=== PATIENT | female | born 1965 | race Caucasian/White ===

== ENCOUNTER 2017-04-24 12:24 | Emergency (ER) | payer MEDICAID ==
[~2017-04-24] VITALS: Ht 160 cm; Wt 104.1 kg
[~2017-04-24 12:24] MED LIST: IBUP-1572 PO; NEOM14.216 TP
[2017-04-24] MEDS ORDERED: normal saline 1000ML IV soln IV ONE (13:45)
[2017-04-24] MEDS ORDERED: morphine 4 MG/ML inj SYRINge IV ONE (13:45)
[2017-04-24 15:27] LABS: BASOPHILS # (AUTO) 0.1 X10'3 (0-0.2); BASOPHILS % (AUTO) 0.3 % (0-1); EOSINOPHILS # (AUTO) 0.2 X10'3 (0-0.9); EOSINOPHILS % (AUTO) 0.8 % (0-6); HEMATOCRIT 31.8 % (35.0-45.0); HEMOGLOBIN 10.9 g/dl (12.0-16.0); LYMPHOCYTES # (AUTO) 1.4 X10'3 (1.1-4.8); LYMPHOCYTES % (AUTO) 7.1 % (21-51); MEAN CORPUSCULAR HEMOGLOBIN 26.4 PG (27.0-31.0); MEAN CORPUSCULAR HGB CONC 34.3 % (33.0-36.5); MEAN CORPUSCULAR VOLUME 77.1 FL (78-98); MEAN PLATELET VOLUME 7.5 FL (7.4-10.4); MONOCYTES # (AUTO) 0.3 X10'3 (0-0.9); MONOCYTES % (AUTO) 1.6 % (2-12); NEUTROPHILS % (AUTO) 90.2 % (42-75); PLATELET COUNT 366 X10'3 (140-440); RED BLOOD COUNT 4.13 X10'6 (4.20-5.60); RED CELL DISTRIBUTION WIDTH 15.1 % (11.5-14.5)
[2017-04-24] MEDS ORDERED: vancomycin/NS 1 GM ADD-VANTAGE 250 ML IV ONE (15:45)
[2017-04-24] MEDS ORDERED: iohexol 300mg/ml 100ml inj. ONE (15:48)
[2017-04-24 15:51] LABS: ALANINE AMINOTRANSFERASE 25 U/L (12-78); ALBUMIN 2.5 G/DL (3.4-5.0); ALBUMIN/GLOBULIN RATIO 0.5 (1.1-1.5); ALKALINE PHOSPHATASE 99 IU/L (46-116); ANION GAP 9 (8-16); ASPARTATE AMINO TRANSFERASE 16 U/L (10-37); BILIRUBIN,TOTAL 0.4 MG/DL (0.1-1.0); BLOOD UREA NITROGEN 10 MG/DL (7-18); BUN/CREATININE RATIO 14.1 (6.6-38.0); CALCIUM 8.4 MG/DL (8.5-10.1); CHLORIDE 105 MMOL/L (99-107); CREATININE 0.71 MG/DL (0.40-0.90); GLUCOSE 102 MG/DL (70-104); POTASSIUM 3.2 MMOL/L (3.5-5.1); SODIUM 142 MMOL/L (135-145); TOTAL CARBON DIOXIDE 27.9 MMOL/L (24-32); TOTAL PROTEIN 7.3 G/DL (6.4-8.2); eGFR 87 ML/MIN
[2017-04-24] MEDS ORDERED: LIDOcaine 1.5% w/epinephrine 1:200,000 5ml ampul IJ ONE (17:00)
[2017-04-24] MEDS ORDERED: TETanus/Pertussis (Acell)/Diphther VAC/PF (Tdap-Adult) 0.5ml syringe IM ONE (17:00)
[2017-04-24] MEDS ORDERED: HYDR-569 PO (17:56)
[2017-04-24] MEDS ORDERED: DOXY100C43 PO (17:56)
[2017-04-24] MEDS ORDERED: ONDA4TAB9 PO (17:56)
[2017-04-24] MEDS ORDERED: CEPH-571 PO (17:56)
[2017-04-24 19:23] VITALS: BP 153/92
== END 2017-04-24 19:24 | disposition home or self-care (01) ==
LOC: ER 12:24
DX: L02.416 Cutaneous abscess of left lower limb (principal); M19.90 Unspecified osteoarthritis, unspecified site; Z90.710 Acquired absence of both cervix and uterus; Z98.890 Other specified postprocedural states; Z88.2 Allergy status to sulfonamides; Z88.5 Allergy status to narcotic agent; Z79.899 Other long term (current) drug therapy
CPT/HCPCS: 10060; 36415; 73701; 80053; 83605; 85025; 87040; 90471; 90715; 96361; 96365; 96375; 99285; A6266; A6449; J2270; J3370; J3490; J7030; Q9967

== ENCOUNTER 2017-04-27 16:17 | Emergency (ER) | payer MEDICAID ==
[~2017-04-27] VITALS: Ht 162.6 cm; Wt 109.1 kg
[~2017-04-27 16:17] MED LIST changes: +CEPH-571 PO; +DOXY100C43 PO; +HYDR-569 PO; +ONDA4TAB9 PO
[2017-04-27 16:29] VITALS: BP 147/87
== END 2017-04-27 17:56 | disposition home or self-care (01) ==
LOC: ER 16:18
DX: L02.415 Cutaneous abscess of right lower limb (principal); M19.90 Unspecified osteoarthritis, unspecified site; Z90.710 Acquired absence of both cervix and uterus; Z88.2 Allergy status to sulfonamides; Z88.5 Allergy status to narcotic agent; Z79.899 Other long term (current) drug therapy
CPT/HCPCS: 99283; A6266; A6449

== ENCOUNTER 2019-09-13 13:35 | Emergency (ER) | payer MEDICAID ==
[~2019-09-13] VITALS: Ht 160 cm; Wt 138.0 kg
[~2019-09-13 13:35] MED LIST changes: -DOXY100C43 PO; +HYDR-4383 PO; -HYDR-569 PO; +LIDOcaine 1% W/epiNEPHrine 1:200,000 10ml vial ONE; -ONDA4TAB9 PO
[2019-09-13 13:59] VITALS: BP 178/82
[2019-09-13] MEDS ORDERED: TETanus/Pertussis (Acell)/Diphther VAC/PF (Tdap-Adult) 0.5ml syringe IMVAC ONE (15:40)
[2019-09-13] MEDS ORDERED: LIDOcaine 1% W/epiNEPHrine 1:200,000 10ml vial IJ ONE (15:40)
== END 2019-09-13 16:40 | disposition home or self-care (01) ==
LOC: ER 13:35
DX: S61.210A Laceration without foreign body of right index finger without damage to nail, initial encounter (principal); S61.411A Laceration without foreign body of right hand, initial encounter; M19.90 Unspecified osteoarthritis, unspecified site; F31.9 Bipolar disorder, unspecified; Z90.49 Acquired absence of other specified parts of digestive tract; Z90.710 Acquired absence of both cervix and uterus; Z98.890 Other specified postprocedural states; Z87.891 Personal history of nicotine dependence; Z88.2 Allergy status to sulfonamides; Z88.5 Allergy status to narcotic agent; Z79.2 Long term (current) use of antibiotics; Z79.899 Other long term (current) drug therapy; W25.XXXA Contact with sharp glass, initial encounter; Y93.G1 Activity, food preparation and clean up; Y92.89 Other specified places as the place of occurrence of the external cause; Y99.8 Other external cause status
CPT/HCPCS: 12001; 90471; 90715; 99283

== ENCOUNTER 2024-10-04 13:12 | Emergency (ER) | payer MEDICAID ==
[~2024-10-04] VITALS: Ht 154.9 cm; Wt 119.1 kg
[~2024-10-04 13:12] MED LIST changes: -LIDOcaine 1% W/epiNEPHrine 1:200,000 10ml vial ONE
[2024-10-04 13:32] VITALS: BP 150/72; PULSE 84; TEMP 97; O2SAT 98
--- NOTE | 2024-10-04 14:11 | Physician Documentation ---
History of Present Illness ~ Chief Complaint: Rash Stated Complaint: RASH, BODY PAIN Time Seen by MD: 15:09 OK to notify your PCP?: Yes Primary Medical Doctor: vincent] Source: patient Mode of Arrival: POV Exam Limitations: no limitations HPI 59-year-old female presents for rash on her right and left inner wrists which is painful and itchy and it appeared yesterday. She is also experiencing chronic low back pain that is radiating down bilateral legs. She denies any saddle anesthesia or loss of bowel or bladder. History of fibromyalgia. Tried Tylenol with no relief. Medication Reconciliation Allergies: Coded Allergies: Sulfa (Sulfonamide Antibiotics) (Verified Allergy, Unknown, 10/04/24) codeine (Verified Allergy, Unknown, 10/04/24) Scheduled Cephalexin (Keflex), 1 CAP PO Q6H Doxycycline Monohydrate (Doxycycline Monohydrate), 1 CAP PO Q12H Hydrocodone/Acetaminophen (Moro 5-325 Tablet), 1 TAB PO TID PRN Neomy Sulf/Bacitrac Zn/Poly (Neosporin Antibiotic Ointment), 14.2 GM TP BID Scheduled PRN Ibuprofen (Ibuprofen), 400-800 MG PO Q8H PRN Past Medical History Past Medical History: Pneumonia, Arthritis, Fibromyalgia, Bipolar, Depression Past Surgical History: appendectomy, , hysterectomy, orthopedic surgeries, tonsillectomy, other Alcohol Use: None Drug Use: none Lives with: Family Lives In: Home Occupation: employed Review of Systems All Other Systems at this time: Reviewed and Negative Physical Exam Vital Signs: RN Vital Signs have been reviewed: Yes, Temperature: 97.0, Source: Temporal, Heart Rate: 84, Respiratory Rate: 16, BP: 150/72, Pulse Oximetry: 98, Weight: 119.100 Oxygen Flow Rate: 0 Pulse Oximetry Reflects: adequate oxygenation Physical Exam General: Alert, no apparent distress. HEENT: PERRL, EOMI, no injection, moist mucous membranes. Neck: Full range of motion. Respiratory: Lungs clear, no respiratory distress. Chest: No accessory muscle use. Cardiovascular: Regular rate and rhythm, no murmurs. Gastrointestinal: Soft, nontender, nondistended. Bowels sounds present. Back: No midline tenderness. Extremities: Normal range of motion, no deformity. Neurologic: Oriented x4. Psychiatric: Normal mood and affect. Skin: Normal color, warm and dry. No edema, no ecchymosis. 6 cm x 6 cm sq area of erythema, warmth and tenderness with erythema spreading up the arm. Progress Results/Orders Results/Orders Orders - DORY ROSADO Ketorolac Trometh 15mg/Ml Vial (Toradol (10/04/24 15:45) Doxycycline 100mg Capsule (Vibramycin 10 (10/04/24 15:45) Vital Signs 10/04/24 13:32 Temp 97.0 Pulse 84 Resp 16 B/P (MAP) 150/72 Pulse Ox 98 O2 Flow Rate 0 Medical Decision Making Additional info obtained from: old records Findings She is experiencing multiple medical complaints. First she has a rash to the left forearm which is both itchy and painful. The redness appears to be spreading up the arm and she states it is opened up and weep some. I have prescribed doxycycline to her pharmacy in the 1st dose given here. She has Benadryl at home and plans to take some is soon as she gets home to help with the itching. She has also had low back pain was radiates down to hurt both her legs for which she tried taking Tylenol with no relief. For this I have given a Toradol injection while here in the department. Differential Dx:Considerations: Include: Abscess, Drug reaction, Herpes zoster, Herpes simplex, Impetigo, Psoriaisis, Rosacea, Scabies Additional Comment Cauda equina Departure Disposition: 01 HOME / SELF CARE / HOMELESS Impression: Primary Impression: Cellulitis Additional Impression: Chronic pain Condition: Stable Discharge Instructions: Cellulitis, Adult Additional Instructions: Follow up with her primary care provider within the next 3 days and return back here for any new or worsening symptoms. You can use Benadryl at home to help reduce the itching orally. Referrals: NO PRIMARY CARE PROVIDER (PCP) Prescriptions Doxycycline Monohydrate (Doxycycline Monohydrate) 100 Mg Capsule 1 CAP PO Q12H for 10 Days, #20 CAP Prov: DORY ROSADO 10/04/24 Education Educated: Patient Educated regarding: diagnosis, treatment, prognosis, need for follow up Additional Comment Medical Screen Exam This patient recieved a medical screening examination. After reviewing the individual's medical complaints with presenting symptoms and performing an appropriate physical examination, it was determined that no immediate life- threatening emergency medical condition is present. This individual is also not a women having contractions. Signature Scribe Signature: . Attestation: Scribed for Dory Rosadop by Dory England NP . 10/04/24 15:52 Parts of this note were created using [employer] voice recognition software program . While efforts were made to correct any mistakes made by this voice recognition software program, nonsensical phrases may remain in this note. In addition, there may be errors and syntax, grammar, content and spelling. DORY ROSADO DOCUMENTATION IMPROVEMENT SPECIALIST Oct 04, 2024 14:11
[2024-10-04] MEDS ORDERED: DOXY-347 PO (15:46)
[2024-10-04] MEDS: DOXYCYCLINE 100MG CAPSULE PO STA (15:53)
[2024-10-04 15:54] VITALS: RESP 15
[2024-10-04] MEDS: ketorolac trometh 15mg/ml vial 15 MG/ML ML IM ONE (15:54)
[2024-10-05] MEDS ORDERED: MELO-100 PO (07:03)
== END 2024-10-04 16:01 | disposition home or self-care (01) ==
LOC: ER 13:13
DX: L03.114 Cellulitis of left upper limb (principal); M19.90 Unspecified osteoarthritis, unspecified site; M54.50 Low back pain, unspecified; M25.531 Pain in right wrist; M25.532 Pain in left wrist; M79.7 Fibromyalgia; F31.9 Bipolar disorder, unspecified; Z88.2 Allergy status to sulfonamides; Z88.5 Allergy status to narcotic agent; Z90.49 Acquired absence of other specified parts of digestive tract; Z90.710 Acquired absence of both cervix and uterus
CPT/HCPCS: 96372; 99283; J1885